=== PATIENT | female | born 1990 | race Caucasian/White ===

== ENCOUNTER 2019-05-03 01:57 | Inpatient (IN) ==
[2019-05-03] MEDS ORDERED: OXYTOCIN 30 UNITS/500 ML BAG IV PRN ×2 (02:52→08:32)
[2019-05-03] MEDS: LACTATED RINGER'S 1,000 ML IV PRN ×2 (03:01→04:03)
[2019-05-03] MEDS ORDERED: BUPIVACAINE 0.25% 30 ML VIAL ONE (03:40)
[2019-05-03] MEDS ORDERED: ePHEDrine sulfate 50 MG/ML AMP ONE (03:40)
[2019-05-03] MEDS ORDERED: fentaNYL 2MCG/ML ROPIV 1.25MG/ML 100 ML BAG EPI ONE (03:41)
[2019-05-03] MEDS ORDERED: fentaNYL citrate 100 MCG/2 ML VIAL ONE (03:41)
[2019-05-03 03:54] LABS: Hematocrit (blood only) 33.1 % (37-47); Hemoglobin 10.3 g/dL (12.0-16.0); Mean Corpuscular Hemoglobin 25.7 pg (25-34); Mean Corpuscular Volume 82.5 fL (80-100); Mean Platelet Volume 11.6 fL (7.4-10.4); Nucleated RBC # (auto) 0.02 K/uL (0-0); Nucleated RBC % (auto) 0.1 %; Platelet Count 228 K/uL (130-400); RDW Standard Deviation 42.6 fL (36.4-46.3); Red Blood Count 4.01 M/uL (4.2-5.4); White Blood Count 15.49 K/uL (4.8-10.8)
[2019-05-03 04:00] LABS: Mean Corpuscular Hgb Conc 31.1 g/dL (32-36)
--- NOTE | 2019-05-03 04:21 | Anesthesiology Consultation ---
Date of Service May 03, 2019 Assessment & Plan Chart Review Chart Review: Patient NOT seen in Pre Admission Testing and Acceptable Risk for Labor Epidural Consults Requested none ASA ASA2 Proposed Anesthesia Anesthesia Type: Labor Epidural and CSE Risk / Benefits Reviewed With: PT / POA / Parent / Guardian, Accepts Plan and Informed Consent Obtained History Height/Weight Height: 5 ft 4 in Weight: 92.533 kg Allergies Allergy/AdvReac Type Severity Reaction Status Date / Time Penicillins Allergy Unknown ?Rash Verified 04/30/19 09:09 Medications Home Medications Medication Instructions Recorded Confirmed Last Taken multivit with min-folic acid 200 200 mcg PO DAILY #30 tab 09/14/18 05/02/19 04/28/19 07:30 mcg chewable tablet acetone (urine) test #50 ea 03/05/19 04/30/19 Unknown blood-glucose meter #1 ea 03/05/19 04/30/19 Unknown lancets 33 gauge #100 ea 03/05/19 04/30/19 Unknown insulin lispro 100 unit/mL 5 unit SQ TID #15 ml 03/15/19 05/02/19 05/01/19 17:30 subcutaneous pen pen needle, diabetic 32 gauge x #150 ea 03/15/19 04/30/19 Unknown 5/32" insulin syringe-needle U-100 0.3 #40 ea 03/16/19 04/30/19 Unknown mL 31 gauge x 5/16" OneTouch Verio #100 ea NS 04/23/19 04/30/19 Unknown famotidine 10 mg PO BID PRN 05/02/19 05/02/19 05/01/19 23:30 insulin NPH isoph U-100 human 10 units SQ QPM 05/02/19 05/02/19 05/01/19 22:15 [Humulin N NPH Insulin KwikPen] Active Medications Generic Name Dose Route Start Last Admin Trade Name Freq PRN Reason Stop Dose Admin Lactated Ringer's 1,000 mls @ 125 mls/hr 05/03/19 02:52 05/03/19 04:03 Lr IV 05/05/19 02:51 125 mls/hr .Q8H PRN Administration L&D Protocol Protocol NPO Date Last Intake of Fluids: 05/03/19 Time Last Intake of Fluids: 03:30 Date Last Intake of Solids: 05/02/19 Time Last Intake of Solids: 21:00 Past Medical History Medical History (Updated 05/03/19 @ 04:20 by Jason Stewart MD) Encounter for pre-operative examination Gestational diabetes on insulin Scoliosis thoracic dextroscoliosis/levoscoliosis per 2004 MRI ([facility]) Exercise / Class Metabolic Activity II 4-5 Yardwork/Stairs/Walk up hill Past Family History Family History Grandmother (Paternal) Malignant neoplasm of stomach Scoliosis Past Surgical History Surgical History History of back surgery T2-L2 fusion Past Anesthesia History No Hx of Anesthesia Complications and No Family Hx of Anesthesia Complications History of PONV No Hx of PONV and No Hx of Motion Sickness Social History Smoking Status: Never smoker Do You Dip or Chew Tobacco: No Hx Alcohol Use: No Hx Substance Use: No substance use type: does not use Review of Systems no chest pain or sob Physical Exam Vital Signs Last Vital Signs Temp 36.8 C 05/03/19 02:13 Pulse 80 05/03/19 04:17 Resp 18 05/03/19 04:00 BP 124/77 05/03/19 02:13 Pulse Ox 98 05/03/19 04:17 ENMT Mouth: no TMJ abnormality Thyromental Distance: > or= 3.5 Finger Breadths Mallampati Class: II Neck normal visual inspection Respiratory normal respiratory effort Auscultation: lungs clear to auscultation bilaterally Cardiovascular Rate/Rhythm: regular rate and regular rhythm Musculoskeletal Spine: normal cervical ROM Neurologic moves all extremities Psychiatric Orientation: alert and oriented x 3 Testing Laboratory Results 05/03/19 03:34 05/03/19 03:05 POC Glucose 102 H
[2019-05-03] MEDS ORDERED: fentaNYL 2MCG/ML ROPIV 1.25MG/ML 100 ML BAG EPI PRN (04:22)
[2019-05-03] MEDS ORDERED: NALOXONE HCL 1 MG in SODIUM CHLORIDE 0.9% 1000ML 1,000 ML IV PRN (04:22)
[2019-05-03] MEDS ORDERED: ONDANSETRON INJ 2 MG/ML 2 ML VIAL IV PRN (04:22)
[2019-05-03] MEDS ORDERED: NALBUPHINE HCL INJ 10 MG/ML AMP IV PRN (04:22)
[2019-05-03] MEDS ORDERED: NALOXONE HCL 0.4 MG/1 ML VIAL/CARP IV PRN (04:22)
[2019-05-03] MEDS ORDERED: ePHEDrine sulfate 50 MG/ML AMP IV PRN (04:22)
[2019-05-03] MEDS ORDERED: DiphenhydrAMINE HCL 50 MG/ML VIAL IV PRN (04:22)
[2019-05-03] MEDS ORDERED: CALCIUM CARBONATE 500 MG CHEWABLE TAB PO PRN (05:16)
[2019-05-03] MEDS ORDERED: CALCIUM CARBONATE 500 MG CHEWABLE TAB ONE (05:23)
--- NOTE | 2019-05-03 08:47 | Labor Progress Brief Note ---
Date of Service May 03, 2019 Subjective Reason For Note: Routine Evaluation Assessment & Plan (1) Supervision of normal first : 28yo 40 weeks GA. IOL 1. Fetus: Cat 1 2. Vitals: WNL 3. Labor: Contractions have spaced out following epidural. Will start Oxytocin. 4. GDM: Continue to monitor BG (2) Insulin controlled gestational diabetes mellitus (GDM) during , antepartum: Physical Exam Genitourinary: Manual OB Exam: + cervical dilation 4 cm, + cervical effacement 80% and + station -2 OB Exam Monitor Tracing: + external FHT monitor used, + external uterine monitor used, + category I and + normal FHT variability; no early decelerations present, no late decelerations present and no variable decelerations Results & Data Vital Signs (Past 12 Hours) Vital Signs Temp Pulse Resp BP Pulse Ox 05/03/19 08:43 114 H 91 05/03/19 08:38 78 96 05/03/19 08:35 88 105/55 L 05/03/19 08:33 99 H 97 05/03/19 08:28 89 98 05/03/19 08:23 98 H 97 05/03/19 08:19 82 100/58 L 05/03/19 08:18 87 97 05/03/19 08:13 92 H 96 05/03/19 08:08 93 H 96 05/03/19 08:04 100 H 101/58 L 90 05/03/19 08:03 106 H 98 05/03/19 08:00 20 05/03/19 07:58 92 H 97 05/03/19 07:53 84 96 05/03/19 07:50 87 104/63 05/03/19 07:48 98 H 97 05/03/19 07:47 102 H 93 05/03/19 07:43 87 96 05/03/19 07:38 98 H 96 05/03/19 07:33 86 98 05/03/19 07:30 36.8 C 20 05/03/19 07:28 93 H 97 05/03/19 07:23 90 97 05/03/19 07:18 102 H 97 05/03/19 07:15 96 H 105/58 L 05/03/19 07:13 94 H 97 05/03/19 07:11 103 H 89 L 05/03/19 07:07 96 H 96 05/03/19 07:06 98 H 102/56 L 05/03/19 07:05 93 H 91 05/03/19 07:02 87 96 05/03/19 07:00 85 18 105/58 L 05/03/19 06:57 91 H 112/55 L 97 05/03/19 06:52 109 H 96 05/03/19 06:50 110 H 124/76 05/03/19 06:47 115 H 98 05/03/19 06:45 103 H 96/58 L 05/03/19 06:42 100 H 97 05/03/19 06:41 111 H 91/61 L 05/03/19 06:37 103 H 96 05/03/19 06:35 203 H 107/56 L 05/03/19 06:32 102 H 97 05/03/19 06:31 103 H 108/54 L 05/03/19 06:30 18 05/03/19 06:27 98 H 98 05/03/19 06:26 102 H 101/58 L 05/03/19 06:22 107 H 97 05/03/19 06:20 98 H 103/55 L 05/03/19 06:17 103 H 98 05/03/19 06:16 99 H 120/55 L 05/03/19 06:12 107 H 98 05/03/19 06:10 114 H 99/57 L 05/03/19 06:07 98 H 98 05/03/19 06:06 109 H 99/54 L 05/03/19 06:02 103 H 98 05/03/19 06:01 100 H 94/58 L 05/03/19 06:00 18 05/03/19 05:57 102 H 99 05/03/19 05:55 95 H 95/57 L 05/03/19 05:52 97 H 98 05/03/19 05:51 94 H 100/55 L 05/03/19 05:47 98 H 98 05/03/19 05:45 106 H 97/56 L 05/03/19 05:42 102 H 98 05/03/19 05:40 100 H 98/62 L 05/03/19 05:37 101 H 99 05/03/19 05:35 102 H 100/59 L 05/03/19 05:32 106 H 96 05/03/19 05:30 96 H 18 101/59 L 05/03/19 05:27 107 H 98 05/03/19 05:25 96 H 105/58 L 05/03/19 05:22 104 H 98 05/03/19 05:20 107 H 106/61 05/03/19 05:17 108 H 99 05/03/19 05:15 110 H 107/60 05/03/19 05:12 111 H 98 05/03/19 05:11 103 H 107/57 L 05/03/19 05:07 101 H 99 05/03/19 05:04 88 107/63 05/03/19 05:02 99 H 100/58 L 99 05/03/19 05:00 90 89/50 L 05/03/19 04:58 93 H 100/59 L 05/03/19 04:57 103 H 98 05/03/19 04:56 100 H 89/55 L 05/03/19 04:54 96 H 92/55 L 05/03/19 04:52 101 H 97/56 L 97 05/03/19 04:50 105 H 96/52 L 05/03/19 04:49 18 05/03/19 04:48 113 H 100/56 L 05/03/19 04:47 103 H 98 05/03/19 04:46 104 H 97/52 L 05/03/19 04:44 105 H 93/54 L 05/03/19 04:42 101 H 101/54 L 97 05/03/19 04:40 100 H 108/56 L 05/03/19 04:37 104 H 98 05/03/19 04:36 97 H 134/85 05/03/19 04:32 96 H 98 05/03/19 04:27 106 H 99 05/03/19 04:22 88 100 05/03/19 04:17 80 98 05/03/19 04:12 79 98 05/03/19 04:07 87 99 05/03/19 04:02 88 99 05/03/19 04:00 18 05/03/19 03:57 78 99 05/03/19 03:52 97 H 90 05/03/19 02:13 36.8 C 86 18 124/77 05/03/19 02:10 86 124/77 Coding Level of Care Code None Diagnoses Supervision of normal first Z34.00 Insulin controlled gestational diabetes mellitus (GDM) during , antepartum O24.414
--- NOTE | 2019-05-03 10:36 | Labor Progress Brief Note ---
Date of Service May 03, 2019 Subjective Feeling comfortable with epidural. Assessment & Plan (1) Encounter for induction of labor: Continue pitocin, epidural. AROM now complete, excellent progress noted. (2) Gestational diabetes: Continue Q1hr FSBG, has not required intervention yet. Gestational diabetes mellitus control: insulin-controlled Trimester: third trimester Qualified Code(s): O24.414 - Gestational diabetes mellitus in , insulin controlled Physical Exam Physical Exam: / AROM clear fluid FHT Cat 1 [place] Q4 Results & Data Vital Signs (Past 12 Hours) Vital Signs Temp Pulse Resp BP Pulse Ox 05/03/19 10:33 99 H 98 05/03/19 10:28 80 99 05/03/19 10:23 80 99 05/03/19 10:20 81 101/68 05/03/19 10:18 79 100 05/03/19 10:16 89 89 L 05/03/19 10:13 89 97 05/03/19 10:08 76 100 05/03/19 10:05 98 H 98/53 L 05/03/19 10:03 100 H 99 05/03/19 09:58 87 100 05/03/19 09:53 92 H 99 05/03/19 09:48 85 118/83 100 05/03/19 09:43 88 97 05/03/19 09:38 87 98 05/03/19 09:33 95 H 115/74 97 05/03/19 09:30 88 91 05/03/19 09:28 90 98 05/03/19 09:23 94 H 96 05/03/19 09:19 91 H 120/81 05/03/19 09:18 89 98 05/03/19 09:13 89 98 05/03/19 09:08 89 99 05/03/19 09:03 91 H 107/78 97 05/03/19 08:58 97 H 97 05/03/19 08:53 90 98 05/03/19 08:50 91 H 119/70 05/03/19 08:49 102 H 92 05/03/19 08:48 101 H 96 05/03/19 08:43 93 H 97 05/03/19 08:38 78 96 05/03/19 08:35 88 105/55 L 05/03/19 08:33 99 H 97 05/03/19 08:30 20 05/03/19 08:28 89 98 05/03/19 08:23 98 H 97 05/03/19 08:19 82 100/58 L 05/03/19 08:18 87 97 05/03/19 08:13 92 H 96 05/03/19 08:08 93 H 96 05/03/19 08:04 100 H 101/58 L 90 05/03/19 08:03 106 H 98 05/03/19 08:00 20 05/03/19 07:58 92 H 97 05/03/19 07:53 84 96 05/03/19 07:50 87 104/63 05/03/19 07:48 98 H 97 05/03/19 07:47 102 H 93 05/03/19 07:43 87 96 05/03/19 07:38 98 H 96 05/03/19 07:33 86 98 05/03/19 07:30 98.2 F 20 05/03/19 07:28 93 H 97 05/03/19 07:23 90 97 05/03/19 07:18 102 H 97 05/03/19 07:15 96 H 105/58 L 05/03/19 07:13 94 H 97 05/03/19 07:11 103 H 89 L 05/03/19 07:07 96 H 96 05/03/19 07:06 98 H 102/56 L 05/03/19 07:05 93 H 91 05/03/19 07:02 87 96 05/03/19 07:00 85 18 105/58 L 05/03/19 06:57 91 H 112/55 L 97 05/03/19 06:52 109 H 96 05/03/19 06:50 110 H 124/76 05/03/19 06:47 115 H 98 05/03/19 06:45 103 H 96/58 L 05/03/19 06:42 100 H 97 05/03/19 06:41 111 H 91/61 L 05/03/19 06:37 103 H 96 05/03/19 06:35 203 H 107/56 L 05/03/19 06:32 102 H 97 05/03/19 06:31 103 H 108/54 L 05/03/19 06:30 18 05/03/19 06:27 98 H 98 05/03/19 06:26 102 H 101/58 L 05/03/19 06:22 107 H 97 05/03/19 06:20 98 H 103/55 L 05/03/19 06:17 103 H 98 05/03/19 06:16 99 H 120/55 L 05/03/19 06:12 107 H 98 05/03/19 06:10 114 H 99/57 L 05/03/19 06:07 98 H 98 05/03/19 06:06 109 H 99/54 L 05/03/19 06:02 103 H 98 05/03/19 06:01 100 H 94/58 L 05/03/19 06:00 18 05/03/19 05:57 102 H 99 05/03/19 05:55 95 H 95/57 L 05/03/19 05:52 97 H 98 05/03/19 05:51 94 H 100/55 L 05/03/19 05:47 98 H 98 05/03/19 05:45 106 H 97/56 L 05/03/19 05:42 102 H 98 05/03/19 05:40 100 H 98/62 L 05/03/19 05:37 101 H 99 05/03/19 05:35 102 H 100/59 L 05/03/19 05:32 106 H 96 05/03/19 05:30 96 H 18 101/59 L 05/03/19 05:27 107 H 98 05/03/19 05:25 96 H 105/58 L 05/03/19 05:22 104 H 98 05/03/19 05:20 107 H 106/61 05/03/19 05:17 108 H 99 05/03/19 05:15 110 H 107/60 05/03/19 05:12 111 H 98 05/03/19 05:11 103 H 107/57 L 05/03/19 05:07 101 H 99 05/03/19 05:04 88 107/63 05/03/19 05:02 99 H 100/58 L 99 05/03/19 05:00 90 89/50 L 05/03/19 04:58 93 H 100/59 L 05/03/19 04:57 103 H 98 05/03/19 04:56 100 H 89/55 L 05/03/19 04:54 96 H 92/55 L 05/03/19 04:52 101 H 97/56 L 97 05/03/19 04:50 105 H 96/52 L 05/03/19 04:49 18 05/03/19 04:48 113 H 100/56 L 05/03/19 04:47 103 H 98 05/03/19 04:46 104 H 97/52 L 05/03/19 04:44 105 H 93/54 L 05/03/19 04:42 101 H 101/54 L 97 05/03/19 04:40 100 H 108/56 L 05/03/19 04:37 104 H 98 05/03/19 04:36 97 H 134/85 05/03/19 04:32 96 H 98 05/03/19 04:27 106 H 99 05/03/19 04:22 88 100 05/03/19 04:17 80 98 05/03/19 04:12 79 98 05/03/19 04:07 87 99 05/03/19 04:02 88 99 05/03/19 04:00 18 05/03/19 03:57 78 99 05/03/19 03:52 97 H 90 05/03/19 02:13 98.2 F 86 18 124/77 05/03/19 02:10 86 124/77 Coding Level of Care Code None Diagnoses Encounter for induction of labor Z34.90 Gestational diabetes O24.414 Gestational diabetes mellitus control: insulin-controlled Trimester: third trimester
--- NOTE | 2019-05-03 12:19 | Delivery Summary ---
Vaginal Delivery Summary Date of Service May 03, 2019 Vaginal Delivery Summary DIAGNOSES: 1. Maria intrauterine at 40wk gestation. 2. Induction of Labor. 3. Group B Streptococcus Neg. PROCEDURE: Spontaneous vaginal delivery without laceration. SURGEON: Yasemin Rueda MD. SALES REPRESENTATIVE: None. ESTIMATED BLOOD LOSS: 350 mL. COMPLICATIONS: None. PLACENTA: Spontaneous and intact with a 3-vessel cord. DISPOSITION: Stable to labor and delivery. DESCRIPTION: The patient pushed well and brought the head to in OA position. The 's head was allowed to deliver with contraction force and no further active pushing, with the perineum protected during this time. The shoulders delivered easily with a maternal pushing effort. There was a loose nuchal cord. The RIGHT shoulder was anterior. The shoulders and body delivered without any difficulty, and the infant was placed on the maternal abdomen. It was vigorous and moving all extremities, and making respiratory efforts. The cord was doubly clamped by the MD and then cut by the FOB. The placenta delivered spontaneously and was noted to be intact and with a 3VC. The cervix, vagina and perineum were examined and were found to be without defect requiring repair. The fundus was firm and lochia minimal immediately after delivery.
[2019-05-03] MEDS ORDERED: SUPERCREAM 0.870% 15 GM JAR EXT PRN (12:26)
[2019-05-03] MEDS ORDERED: BENZOCAINE 20% AER SPR 82.5 GM CAN EXT PRN (12:26)
[2019-05-03] MEDS ORDERED: DIPHTHERIA/TETANUS/PERTUSSIS 0.5 ML SYR/VIAL IM ONE (12:26)
[2019-05-03] MEDS ORDERED: ACETAMINOPHEN 325 MG TAB PO PRN (12:26)
[2019-05-03] MEDS ORDERED: HYDROCORTISONE ACETATE 25 MG SUPP PR PRN (12:26)
[2019-05-03] MEDS ORDERED: OXYCODONE/ACETAMINOPHEN 5mg/325mg TAB PO PRN (12:26)
[2019-05-03] MEDS ORDERED: DOCUSATE SODIUM 100 MG CAP ONE (19:39)
[2019-05-03] MEDS: IBUPROFEN 600 MG TAB PO PRN ×2 (19:45→23:41)
[2019-05-03] MEDS: DOCUSATE SODIUM 100 MG CAP PO SCH (19:45)
--- NOTE | 2019-05-04 05:59 | Obstetrical Progress Note ---
Date of Service <Kayce Sinclair - Last Filed: 05/04/19 06:47> May 04, 2019 Assessment & Plan <Kayce Sinclair DO - Last Filed: 05/04/19 06:47> (1) Encounter for care and examination after delivery: 28 yo PPD #1 following at 40.0 weeks. Doing well and without complaints this AM. - will continue routine care. - Following d/c will have f/u with Dr. Rueda. Subjective <Kayce Sinclair - Last Filed: 05/04/19 06:47> 28 yo female ; PPD # 1 following vaginal delivery at 40.0weeks; doing well this AM; no abdominal cramping/pain; voiding well; tolerating meals overnight, able to ambulate some within the room. Some persistent spotting this morning but improved from yesterday. Is which she reports is going well. Only complaint is she is tired. Review of Systems Constitutional: denies fever, chills, sweats, headache Respiratory: denies SOB, difficulty breathing Cardiac: denies CP, chest palpitations, chest pressure Breast: denies breast pain : denies dysuria Physical Exam <Kayce Sinclair - Last Filed: 05/04/19 06:47> General: patient is alert and oriented, in NAD Cardiac: +S1/S2, no murmurs rubs or gallops Respiratory: lungs CTA b/l, anteriorly and posteriorly, no wheezes rales or rhonchi, no increased work of breathing, symmetric chest rise, no respiratory distress Abdomen: soft, NT, +bowel sounds Uterus: uterine fundus firm, palpable below the level of the umbilicus Lower Extremities: no LE edema or swelling, no deep calf pain, Elias's sign negative b/l Results & Data <Kayce Sinclair - Last Filed: 05/04/19 06:47> Vital Signs (Past 12 Hours) Vital Signs Temp Pulse Pulse Resp BP Pulse Ox 05/04/19 03:00 37.1 C 81 18 115/76 97 05/03/19 23:20 37.1 C 93 H 18 114/71 97 05/03/19 19:45 37.2 C 86 16 118/80 100 Laboratory Results Laboratory Results - last 24 hr 03/05/03/19 05/03/19 06:42 08:02 09:05 POC Glucose 97 86 84 05/03/19 10:19 POC Glucose 89 Medications Administered Current Medications Acetaminophen (Tylenol) 650 mg PO Q6H PRN PRN Reason: Pain/RAMIREZ/Fever Stop: 06/02/19 12:25 Benzocaine (Dermoplast Pain Relieving [place]) 1 appln EXT PRN PRN PRN Reason: Perineal Discomfort Stop: 06/02/19 12:25 Last Admin: 05/03/19 19:46 Dose: 82.5 appln Documented by: Cocaine HCl (Supercream 0.870%) 1 gm EXT BID PRN PRN Reason: Hemorrhoidal Inflammation Stop: 05/17/19 12:25 Docusate Sodium (Colace) 100 mg PO DAILY@08,21 [facility] Stop: 06/02/19 20:59 Last Admin: 05/03/19 19:45 Dose: 100 mg Documented by: Hydrocortisone (Anusol Hc) 25 mg [place] BID PRN PRN Reason: Hemorrhoidal Inflammation Stop: 06/02/19 12:25 Lactated Ringer's (Lr) 1,000 mls @ 125 mls/hr IV .Q8H PRN; Protocol PRN Reason: L&D Protocol Stop: 05/05/19 02:51 Last Admin: 05/03/19 04:03 Dose: 125 mls/hr Documented by: Oxytocin (Pitocin) 30 units in 500 mls @ 333.333 mls/hr IV .Q1H30M PRN; Protocol PRN Reason: Bleeding Control Stop: 06/02/19 02:51 Ibuprofen (Motrin) 600 mg PO Q4H PRN PRN Reason: Pain/RAMIREZ/Cramping/Fever Stop: 06/02/19 12:25 Last Admin: 05/03/19 23:41 Dose: 600 mg Documented by: Oxycodone/Acetaminophen (Percocet 5mg/325mg) 1 tab PO Q4H PRN PRN Reason: Pain not relieved by... Stop: 05/17/19 12:25 Prenat Multivit/[place]/Iron/Folic Ac ( Vitamin) 1 tab PO DAILY@08 [facility] Stop: 06/03/19 07:59 <Yasemin Rueda MD - Last Filed: 05/04/19 07:30> Co-Signing Physician Notes I have reviewed the resident's note and examined the patient myself, and agree with the note above. Resident Activity Tracking <Kayce Sinclair DO - Last Filed: 05/04/19 06:47> Resident Involvement: Resident Care Provided Care Provided: OB Delivery
[2019-05-04 07:50] LABS: Hematocrit (blood only) 29.9 % (37-47); Hemoglobin 9.5 g/dL (12.0-16.0); Mean Corpuscular Hemoglobin 26.3 pg (25-34); Mean Corpuscular Hgb Conc 31.8 g/dL (32-36); Mean Corpuscular Volume 82.8 fL (80-100); Mean Platelet Volume 10.9 fL (7.4-10.4); Platelet Count 210 K/uL (130-400); RDW Coefficient of Variation 14.3 % (11.5-14.5); RDW Standard Deviation 43.5 fL (36.4-46.3); Red Blood Count 3.61 M/uL (4.2-5.4); White Blood Count 14.19 K/uL (4.8-10.8)
[2019-05-04] MEDS: IBUPROFEN 600 MG TAB PO PRN ×3 (08:36→21:33)
[2019-05-04] MEDS: DOCUSATE SODIUM 100 MG CAP PO SCH ×2 (08:37→21:34)
[2019-05-04] MEDS: PRENATAL VITAMIN 1 TAB PO SCH (08:37)
--- NOTE | 2019-05-05 06:09 | Obstetrical Progress Note ---
Date of Service <Kayce Sinclair DO - Last Filed: 05/05/19 06:40> May 05, 2019 Assessment & Plan <Kayce Sinclair DO - Last Filed: 05/05/19 06:40> (1) Encounter for care and examination after delivery: 28 yo PPD #2 following at 40.0 weeks. Doing well and without complaints this AM. - For discharge today. - Following d/c will have f/u with Dr. Rueda. - Went over d/c instructions and answered all patient questions. Subjective <Kayce Sinclair - Last Filed: 05/05/19 06:40> 28 yo female ; PPD # 1 following vaginal delivery at 40.0weeks; doing well this AM; no abdominal cramping/pain; voiding well; tolerating meals overnight, able to ambulate some within the room. which she reports is going well. No concerns or complaints this morning. Review of Systems Constitutional: denies fever, chills, sweats, headache Respiratory: denies SOB, difficulty breathing Cardiac: denies CP, chest palpitations, chest pressure Breast: denies breast pain : denies dysuria Physical Exam <Kayce Sinclair DO - Last Filed: 05/05/19 06:40> General: patient is alert and oriented, in NAD Cardiac: +S1/S2, no murmurs rubs or gallops Respiratory: lungs CTA b/l, anteriorly and posteriorly, no wheezes rales or rhonchi, no increased work of breathing, symmetric chest rise, no respiratory distress Abdomen: soft, NT, +bowel sounds Uterus: uterine fundus firm, palpable below the level of the umbilicus Lower Extremities: no LE edema or swelling, no deep calf pain, Elias's sign negative b/l Results & Data <Kayce Sinclair - Last Filed: 05/05/19 06:40> Vital Signs (Past 12 Hours) Vital Signs Temp Pulse Resp BP Pulse Ox 05/04/19 23:35 36.7 C 89 18 115/76 97 Laboratory Results Laboratory Results - last 24 hr 05/04/19 07:12 WBC 14.19 H RBC 3.61 L Hgb 9.5 L Hct 29.9 L MCV 82.8 MCH 26.3 MCHC 31.8 L RDW Std Deviation 43.5 RDW Coeff of Teresa 14.3 Plt Count 210 MPV 10.9 H Medications Administered Current Medications Acetaminophen (Tylenol) 650 mg PO Q6H PRN PRN Reason: Pain/RAMIREZ/Fever Stop: 06/02/19 12:25 Benzocaine (Dermoplast Pain Relieving [place]) 1 appln EXT PRN PRN PRN Reason: Perineal Discomfort Stop: 06/02/19 12:25 Last Admin: 05/03/19 19:46 Dose: 82.5 appln Documented by: Cocaine HCl (Supercream 0.870%) 1 gm EXT BID PRN PRN Reason: Hemorrhoidal Inflammation Stop: 05/17/19 12:25 Docusate Sodium (Colace) 100 mg PO DAILY@08,21 [facility] Stop: 06/02/19 20:59 Last Admin: 05/04/19 21:34 Dose: 100 mg Documented by: Hydrocortisone (Anusol Hc) 25 mg [place] BID PRN PRN Reason: Hemorrhoidal Inflammation Stop: 06/02/19 12:25 Oxytocin (Pitocin) 30 units in 500 mls @ 333.333 mls/hr IV .Q1H30M PRN; Protocol PRN Reason: Bleeding Control Stop: 06/02/19 02:51 Ibuprofen (Motrin) 600 mg PO Q4H PRN PRN Reason: Pain/RAMIREZ/Cramping/Fever Stop: 06/02/19 12:25 Last Admin: 05/04/19 21:33 Dose: 600 mg Documented by: Oxycodone/Acetaminophen (Percocet 5mg/325mg) 1 tab PO Q4H PRN PRN Reason: Pain not relieved by... Stop: 05/17/19 12:25 Prenat Multivit/[place]/Iron/Folic Ac ( Vitamin) 1 tab PO DAILY@08 [facility] Stop: 06/03/19 07:59 Last Admin: 05/04/19 08:37 Dose: 1 tab Documented by: <Piyush Tee Jr, MD, FACOG - Last Filed: 05/05/19 06:55> Co-Signing Physician Notes Resident Physician Supervision Note: I was present with Dr. Brown during the history and exam. I discussed the case with the resident and agree with the findings and plan as documented in the note. Any exceptions or clarifications are listed here: D/C instruction given, f/u in 6 weeks Documented By: Piyush Tee Jr, MD, FACOG Resident Activity Tracking <Kayce Sinclair DO - Last Filed: 05/05/19 06:40> Resident Involvement: Resident Care Provided Care Provided: OB Delivery
[2019-05-05] MEDS: PRENATAL VITAMIN 1 TAB PO SCH (08:42)
[2019-05-05] MEDS: IBUPROFEN 600 MG TAB PO PRN (08:43)
[2019-05-05] MEDS: DOCUSATE SODIUM 100 MG CAP PO SCH (08:43)
== END 2019-05-05 12:25 | disposition home or self-care (01) | DRG 807 ==
LOC: OPB 01:57 → EDSTATUS 01:57 → 4S1 01:59 → 4S2 16:25